=== PATIENT | female | born 1995 | race Two or more races ===

== ENCOUNTER → 2016-07-09 | Outpatient (REF) | LOC: M LAB REF 15:06 | DX: Z32.02 Encounter for pregnancy test, result negative (principal) ==

== ENCOUNTER 2016-08-20 15:43 | Outpatient (CLI) | payer OTHER, SELFPAY ==
[~2016-08-20] VITALS: Ht 175.3 cm; Wt 75.0 kg
[2016-08-20] MEDS ORDERED: PRENTAB9 PO (15:48)
[2016-08-20 15:53] VITALS: BP 131/73
== END 2016-08-20 16:58 | disposition home or self-care (01) ==
LOC: M LDO 15:43
PROVIDERS: ATTEND Obstetrics & Gynecology
DX: O26.893 Other specified pregnancy related conditions, third trimester (principal); Z3A.28 28 weeks gestation of pregnancy; N89.9 Noninflammatory disorder of vagina, unspecified; F32.9 Major depressive disorder, single episode, unspecified; F41.9 Anxiety disorder, unspecified; F50.00 Anorexia nervosa, unspecified; O99.343 Other mental disorders complicating pregnancy, third trimester